=== PATIENT | female | born 1990 | race Caucasian/White ===

== ENCOUNTER 2017-10-06 22:28 | Emergency (ER) | payer BC, OTHER ==
[2017-10-06 22:45] VITALS: BP 121/69
== END 2017-10-07 00:45 | disposition left against medical advice (07) ==
LOC: ED 22:28
DX: R42 Dizziness and giddiness (principal); Z53.21 Procedure and treatment not carried out due to patient leaving prior to being seen by health care provider

== ENCOUNTER 2017-10-07 09:41 | Emergency (ER) | payer BC, OTHER ==
[2017-10-07] MEDS ORDERED: Metoclopramide IV* 5 MG/ML 2 ML VIAL IV ONE (11:07)
[2017-10-07] MEDS ORDERED: diPHENhydraMINE IV* 50 MG/ML 1 ml VIAL (BENADRYL) IV ONE (11:07)
[2017-10-07] MEDS ORDERED: NS 0.9% 1000 ML* 1,000 ML IV ONE (11:07)
[2017-10-07] MEDS ORDERED: Ketorolac INJ* 30 MG/ML 1 ML VIAL IV PUSH ONE (11:07)
--- NOTE | 2017-10-07 11:18 | ED ---
Throat Pain/Nasal Congestion - HPI Summary HPI Summary: Patient here with a left vision change since last night. She reports she was doing her homework on the computer when she started to get and are which was compromise of patchy spots in her vision along with sparkly light. She's had this before with migraines she took an Imitrex to stave off a headache. She also went home and rested in the hopes that this would dissipate however it persisted so she called her on-call physician who recommended she go to the emergency department. While here last night waiting to be seen, her symptoms seemed to resolve and so she went home to sleep. She woke this morning with return of visual changes same as last night and so came here again today for evaluation. She denies a headache which she normally gets with migraines if she doesn't take her Imitrex and time. She has not taken any acetaminophen or ibuprofen at this time. She denies head trauma, ENT sx and any other change in lifestyle including foods, beverages, supplements, medication of which she takes none, stress level, sleep pattern etc. She admits she's had visual aura in the past with migraines and was seen by a neurologist a few years back in [facility] [place], her hometown. They advise that she stop for control pill at the time which she did. She currently has a Mirena IUD for control and had a period last week. She does not feel that her menstrual cycle is related to her migrainous symptoms. She is also not been able to identify other triggers although she does admit she has not kept a "headache journal". She reports these are as followed by headache do not appear to have a pattern as they occur at random intervals. She denies any other neurologic symptoms or deficits such as numbness, tingling, weakness, change in smell, difficulty with balance, slurred speech, difficulty articulating or finding words, difficulty with memory. She feels she is overall less stress than she's been all semester and sleeping about 7 hours a night. Since her symptoms have been well controlled after her neurology evaluation, she follows with her PCP for her migraines. She denies pain at this time - just came in to get checked out. NOTE: there has been a dramatic change in weather recently - went from 40's to 80's w/ changes in humidity (lower than usual). She also admits to driving home to [place] last weekend. - History of Current Complaint Chief Complaint: EDEyeProblem Time Seen by Provider: 10/07/17 10:49 Hx Obtained From: Patient - Allergies/Home Medications Allergies/Adverse Reactions: Allergies Allergy/AdvReac Type Severity Reaction Status Date / Time amoxicillin [From Augmentin] Allergy Rash Verified 10/07/17 09:47 clavulanic acid Allergy Rash Verified 10/07/17 09:47 [From Augmentin] Sulfa (Sulfonamide Allergy Rash Verified 10/07/17 09:47 Antibiotics) PMH/Surg Hx/FS Hx/Imm Hx Previously Healthy: Yes Endocrine/Hematology History: Denies: Hx Anticoagulant Therapy, Hx Blood Disorders, Hx Thyroid Disease, Hx Anemia, Hx Unexplained Bleeding, Hx Coagulopothy, Autoimmune Disease, Other Endocrine/Hematological Disorders Cardiovascular History: Denies: Hx Aneurysm Sensory History: Reports: Hx Vision Problem - intermittent migraine w/ aura Denies: Hx Contacts or Glasses, Hx Eye Injury Opthamlomology History: Denies: Hx Contacts or Glasses - Immunization History Immunizations Up to Date: Yes Infectious Disease History: No Infectious Disease History: Denies: Traveled Outside the [place] in Last 30 Days - Family History Known Family History: Positive: None - Social History Occupation: Student - PhD student Lives: Dormitory/Roommates Alcohol Use: Rare Hx Substance Use: No Substance Use Type: Reports: None Hx Tobacco Use: No Smoking Status (MU): Never Smoked Tobacco Review of Systems Constitutional: Negative Negative: Fever, Chills, Fatigue Eyes: Other - visual aura as in HPI Negative: Photophobia, Diplopia, Drainage, Erythema ENT: Negative Cardiovascular: Negative Respiratory: Negative Gastrointestinal: Negative Positive: no symptoms reported Musculoskeletal: Negative Skin: Negative Neurological: Negative Psychological: Normal All Other Systems Reviewed And Are Negative: Yes Physical Exam Triage Information Reviewed: Yes Vital Signs On Initial Exam: Initial Vitals Temp Pulse Resp BP Pulse Ox 99.2 F 76 15 105/60 100 10/07/17 09:48 10/07/17 09:48 10/07/17 09:48 10/07/17 09:48 10/07/17 09:48 Vital Signs Reviewed: Yes Appearance: Positive: Well-Appearing, No Pain Distress, Well-Nourished Skin: Positive: Warm, Skin Color Reflects Adequate Perfusion, Dry Head/Face: Positive: Normal Head/Face Inspection Eyes: Positive: Normal, EOMI, CORIE - no photophobia, Conjunctiva Clear. Negative: Conjunctiva Inflammed, Discharge ENT: Positive: Normal ENT inspection, Hearing grossly normal, Pharynx normal, TMs normal, Uvula midline. Negative: Nasal congestion, Nasal drainage, Tonsillar swelling, Tonsillar exudate, Sinus tenderness Neck: Positive: Supple, Nontender, No Lymphadenopathy Respiratory/Lung Sounds: Positive: Clear to Auscultation, Breath Sounds Present. Negative: Rales, Rhonchi, Wheezes Cardiovascular: Positive: Normal, RRR, Pulses are Symmetrical in both Upper and Lower Extremities, S1, S2. Negative: Murmur, Rub Abdomen Description: Positive: Nontender, No Organomegaly, Soft Bowel Sounds: Positive: Present Musculoskeletal: Positive: Normal, Strength/ROM Intact Neurological: Positive: Normal, Sensory/Motor Intact, Alert, Oriented to Person Place, Time, CN Intact II-III, Reflexes Intact, Facial Symmetry, Speech Normal Psychiatric: Positive: Normal Diagnostics - Vital Signs Vital Signs Temp Pulse Resp BP Pulse Ox 10/07/17 11:00 62 100 10/07/17 10:49 71 99 10/07/17 09:48 99.2 F 76 15 105/60 100 - Laboratory Lab Statement: Any lab studies that have been ordered have been reviewed, and results considered in the medical decision making process. EENT Course/Dx - Course Course Of Treatment: Persistent Lt visual changes since last night despite migraine tx today. She will be seen at Opht[facility]ology today for further evaluation of vision - spoke w/ ophthamologist there who agrees pt should be seen. - Diagnoses Provider Diagnoses: Change in vision Discharge - Sign-Out/Discharge Documenting (check all that apply): Discharge/Admit/Transfer - Discharge Plan Condition: Stable Disposition: [facility] Patient Education Materials: Migraine Headache (ED) Referrals: [facility] [place] [Primary Care Provider] - Bill Ha MD [Medical Doctor] - Additional Instructions: You appear to have a migranous aura however with your persistent visual change and lack of headache, it is recommended that your follow-up directly after this visit to be seen by the ophthalmology team at Dr. Ha's office. They will be expecting your visit for a 2:00pm appointment today. - Billing Disposition and Condition Condition: STABLE Disposition: [facility]
[2017-10-07 13:26] VITALS: BP 126/72
== END 2017-10-07 13:25 | disposition short-term general hospital (02) ==
LOC: ED 09:41
DX: H53.9 Unspecified visual disturbance (principal)
CPT/HCPCS: 96360; 96374; 96375; 99282; J1200; J1885; J2765